=== PATIENT | male | born 1965 | race Caucasian/White ===

== ENCOUNTER 2017-06-21 06:13 | Emergency (ER) | payer OTHER ==
[2017-06-21 06:35] LABS: BILIRUBIN,URINE NEGATIVE (NEGATIVE); GLUCOSE, URINE (UA) NEGATIVE (NEGATIVE); KETONES,URINE (UA) NEGATIVE (NEGATIVE); LEUKOCYTE ESTERASE, URINE NEGATIVE (NEGATIVE); NITRITE,URINE NEGATIVE (NEGATIVE); OCCULT BLOOD,URINE TRACE-INTA (NEGATIVE); PROTEIN,URINE NEGATIVE (NEGATIVE); UROBILINOGEN,URINE 0.2 (NORMAL) E.U./dL (NORMAL)
[2017-06-21] MEDS ORDERED: SODIUM CHLORIDE 0.9% 1,000 ML IV ONE (06:39)
[2017-06-21] MEDS ORDERED: KETOROLAC 60 MG/2 ML VIAL IVP STA (06:39)
[2017-06-21 06:47] LABS: CLARITY,URINE CLEAR (CLEAR)
[2017-06-21 06:48] LABS: BASOPHILS # (AUTO) 0.1 10^3/uL (0.0-0.1); BASOPHILS % (AUTO) 0.6 %; EOSINOPHILS # (AUTO) 0.1 10^3/uL (0.0-0.7); EOSINOPHILS % (AUTO) 1.2 %; HGB - HEMOGLOBIN 14.8 g/dL (14.0-18.0); LYMPHOCYTES # (AUTO) 1.8 10^3/uL (1.5-3.5); LYMPHOCYTES % (AUTO) 17.3 %; MEAN CORPUSCULAR HEMOGLOBIN 28.6 pg (27.0-31.0); MEAN CORPUSCULAR HGB CONC 33.9 g/dL (32.0-36.0); MEAN CORPUSCULAR VOLUME 84.4 fL (80.0-94.0); MEAN PLATELET VOLUME 6.6 fL (7.4-11.4); MONOCYTES # (AUTO) 0.4 10^3/uL (0.0-1.0); MONOCYTES % (AUTO) 4.3 %; NEUTROPHILS # (AUTO) 7.8 10^3/uL (1.5-6.6); NEUTROPHILS % (AUTO) 76.6 %; PLT - PLATELET COUNT 250 10^3/uL (130-450); RED BLOOD COUNT 5.17 10^6/uL (4.70-6.10); RED CELL DISTRIBUTION WIDTH 13.4 % (12.0-15.0); WHITE BLOOD COUNT 10.2 x10^3/uL (4.8-10.8)
[2017-06-21 06:59] LABS: ALBUMIN 4.4 g/dL (3.2-5.5); ALBUMIN/GLOBULIN RATIO 1.5 (1.0-2.2); BILIRUBIN,TOTAL 0.7 mg/dL (0.2-1.0); CALCIUM 9.4 mg/dL (8.5-10.3); CREATININE 1.2 mg/dL (0.6-1.2); TOTAL PROTEIN 7.3 g/dL (6.7-8.2)
--- NOTE | 2017-06-21 07:17 | ED Physician Documentation ---
PD HPI ABD PAIN - Stated complaint Stated Complaint: SIDE/BACK PX - Chief complaint Chief Complaint: Abd Pain - History obtained from History obtained from: Patient - History of Present Illness Timing - onset: Last night (had had some similar pain a few days ago and improved after a few hours. Was doing okay without pain, then severe pain onset overnight and continues into this morning.) Timing - duration: Hours Timing - details: Abrupt onset, Still present Quality: Aching, Sharp, Pain. No: Cramping Location: RLQ Radiation: Right flank Improved by: No: Eating, Laying still, Position Worsened by: No: Eating, Moving, Breathing, Position Associated symptoms: Nausea. No: Fever, Vomiting, Diarrhea, Dysuria Similar symptoms before: Diagnosis (kidney stone many years ago. No recent problems.) Recently seen: Not recently seen Review of Systems Constitutional: denies: Fever, Chills Nose: denies: Rhinorrhea / runny nose, Congestion Throat: denies: Sore throat Cardiac: denies: Chest pain / pressure, Palpitations Respiratory: denies: Cough GI: reports: Abdominal Pain, Nausea. denies: Vomiting, Diarrhea : denies: Dysuria, Frequency Skin: denies: Rash, Lesions PD PAST MEDICAL HISTORY - Past Medical History Past Medical History: Yes Cardiovascular: Hypertension Respiratory: None Neuro: None Endocrine/Autoimmune: None GI: None : Kidney stones HEENT: None Psych: None Musculoskeletal: None Derm: None - Past Surgical History Past Surgical History: Yes - Present Medications Home Medications: Ambulatory Orders Medication Instructions Recorded Confirmed HYDROcod/ACETAM 5/325 [Oneco 5/325] 1 tab PO Q6H PRN #15 tablet 06/21/17 Losartan [Cozaar] 50 mg PO DAILY 06/21/17 06/21/17 Multivitamin [Multiple Vitamins] 1 tab PO DAILY 06/21/17 06/21/17 Ondansetron Odt [Zofran] 4 mg TL Q6H PRN #15 tablet 06/21/17 - Allergies Allergies/Adverse Reactions: Allergies Allergy/AdvReac Type Severity Reaction Status Date / Time acetaminophen [From Percocet] Allergy Unknown Verified 06/21/17 06:43 oxycodone [From Percocet] Allergy Unknown Verified 06/21/17 06:43 - Social History Does the pt smoke?: No Smoking Status: Never smoker Does the pt drink ETOH?: Yes Does the pt have substance abuse?: No - Immunizations Immunizations are current?: Yes - POLST Patient has POLST: No PD ED PE NORMAL - Vitals Vital signs reviewed: Yes - General General: Alert and oriented X 3, Well developed/nourished, Other (appears in pain) - HEENT HEENT: Pharynx benign - Neck Neck: Supple, no meningeal sign, No adenopathy - Cardiac Cardiac: RRR, No murmur - Respiratory Respiratory: Clear bilaterally - Abdomen Abdomen: Normal bowel sounds, Soft, Non distended, No organomegaly, Other (mild tender right lower without guarding nor percussion tender. Right CVA area is tender to percussion. ) - Male Male : Other (no inguinal nodes nor hernias. Scrotum not examined. ) - Derm Derm: Normal color, Warm and dry - Extremities Extremities: No tenderness to palpate, Normal ROM s pain, No edema, No calf tenderness / cord - Neuro Neuro: Alert and oriented X 3, No motor deficit, Normal speech Results - Vitals Vitals: Vital Signs - 24 hr 06/21/17 06/21/17 06:22 08:28 Temperature 37.0 C Heart Rate 88 73 Respiratory 18 16 Rate Blood Pressure 181/95 H 132/80 H O2 Saturation 95 98 Oxygen O2 Source Room air - Labs Labs: Laboratory Tests 06/21/17 06/21/17 06/21/17 06:23 06:38 06:38 WBC 10.2 RBC 5.17 Hgb 14.8 Hct 43.6 MCV 84.4 MCH 28.6 MCHC 33.9 RDW 13.4 Plt Count 250 MPV 6.6 L Neut # 7.8 H Lymph # 1.8 Richardson # 0.4 Eos # 0.1 Baso # 0.1 Absolute Nucleated RBC 0.00 Nucleated RBC % 0.0 Sodium 140 Potassium 4.1 Chloride 104 Carbon Dioxide 26 Anion Gap 10.0 BUN 21 H Creatinine 1.2 Estimated GFR (MDRD) 64 L Glucose 156 H Calcium 9.4 Total Bilirubin 0.7 AST 37 ALT 52 Alkaline Phosphatase 43 Total Protein 7.3 Albumin 4.4 Globulin 2.9 Albumin/Globulin Ratio 1.5 Lipase 14 L Urine Color YELLOW Urine Clarity CLEAR Urine pH 6.0 Ur Specific [place] 1.025 Urine Protein NEGATIVE Urine Glucose (UA) NEGATIVE Urine Ketones NEGATIVE Urine Occult Blood TRACE-INTA Urine Nitrite NEGATIVE Urine Bilirubin NEGATIVE Urine Urobilinogen 0.2 (NORMAL) Ur Leukocyte Esterase NEGATIVE Ur Microscopic Review NOT INDICATED Urine Culture Comments NOT INDICATED - Rads (name of study) KUB CT Radiology: Prelim report reviewed (distal right ureteral stone 2-3 mm with mild obstruction. ) PD MEDICAL DECISION MAKING - ED course Complexity details: reviewed results (small 2 mm stone distal right ureter. ), re-evaluated patient (much improved with IV meds. Feels good to go home.), considered differential, d/w patient Departure - Departure Disposition: Home, Self Care Clinical Impression: Renal colic, Ureterolithiasis Abdominal pain Qualifiers: Abdominal location: right lower quadrant Qualified Code(s): R10.31 - Right lower quadrant pain Condition: Stable Record reviewed to determine appropriate education?: Yes Instructions: ED Stone Renal W Colic Follow-Up: Riaz Martinez MD [Primary Care Provider] - Prescriptions: HYDROcod/ACETAM 5/325 [Oneco 5/325] 1 tab PO Q6H PRN #15 tablet PRN Reason: Pain Ondansetron Odt [Zofran] 4 mg TL Q6H PRN #15 tablet PRN Reason: Nausea / Vomiting Comments: Drink lots of fluids. Ibuprofen or naproxen 2-3 times a day for the next few days. Add ondansetron if needed for nausea and hydrocodone if needed for pain. Follow-up with your primary if this has not improved over the next few days. Discharge Date/Time: 06/21/17 09:05
[2017-06-21] MEDS ORDERED: LIDOCAINE-MPF 2% 7 ML in SODIUM CHLORIDE 0.9% 50 ML IV STA (07:25)
[2017-06-21] MEDS ORDERED: HYDROmorphone 1 MG/ML SYRINGE IVP STA (07:25)
[2017-06-21] MEDS ORDERED: ONDANSETRON 4 MG/2 ML VIAL IVP STA (07:25)
--- NOTE | 2017-06-21 08:18 | CT Report ---
EXAM: CT ABDOMEN AND PELVIS (CT KUB) EXAM DATE: 06/21/2017 07:55 AM. CLINICAL HISTORY: Right flank and abd pain abrupt. COMPARISONS: None. TECHNIQUE: Routine axial helical CT imaging was performed through the abdomen and pelvis without IV c ontrast. Reconstructions: Coronal and sagittal. In accordance with CT protocol optimization, one or more of the following dose reduction techniques w ere utilized for this exam: automated exposure control, adjustment of mA and/or KV based on patient s ize, or use of iterative reconstructive technique. FINDINGS: Lung Bases: Unremarkable. Right Kidney/Ureter: No stones, hydronephrosis, or hydroureter. No perinephric fat stranding. There is a 2 mm stone of the distal right ureter. There is mild periureteral fat stranding. Left Kidney/Ureter: No stones, hydronephrosis, or hydroureter. No perinephric fat stranding. Other Solid Organs: There is a low attenuating focus in the right lobe of the liver 2.3 x 1.3 cm. Add itional similar-appearing focus in the right lobe more inferiorly 1.3 x 1.1 centimeters. These are no nspecific. Gallbladder/Bile Ducts: Unremarkable. Peritoneal Cavity: No free fluid, free air or atul adenopathy. Bowel is grossly unremarkable. Pelvic Organs: No bladder stones or wall thickening. Noncontrast images of the visualized pelvic orga ns are unremarkable. Vasculature: Unremarkable. No bone lesions. IMPRESSION: 2 mm distal right ureteral stone causes mild obstruction. There are nonspecific low attenuating lesions in the liver, which may be better evaluated with liver CT. [facility] Referring Provider Line: [phone] SITE ID: [id number]
[2017-06-21 08:28] VITALS: BP 132/80
== END 2017-06-21 09:05 | disposition home or self-care (01) ==
LOC: ED 06:13
DX: N20.1 Calculus of ureter (principal); R10.31 Right lower quadrant pain; I10 Essential (primary) hypertension
CPT/HCPCS: 36415; 74176; 80053; 81001; 81003; 83690; 85025; 87086; 96361; 96374; 99283; 99284

== ENCOUNTER 2018-03-05 11:47 | Emergency (ER) | payer OTHER ==
--- NOTE | 2018-03-05 12:28 | XRAY Report ---
Reason: GLF, left shoulder/upper arm pain Procedure Date: 03/05/2018 Accession Number: [id number] / [id number] Procedure: XR - Shoulder 3 View LT CPT Code: FULL RESULT: EXAM: LEFT SHOULDER RADIOGRAPHY EXAM DATE: 03/05/2018 12:12 PM. CLINICAL HISTORY: GLF, left shoulder/upper arm pain. COMPARISON: None. TECHNIQUE: 3 views. FINDINGS: The humeral head is dislocated inferiorly and anteriorly. There is a Hill-Sachs lesion. In addition, there is a greater tuberosity fracture. The AC joint appears intact. IMPRESSION: 1. Glenohumeral dislocation 2. Hill-Sachs lesion and greater tuberosity fracture. [facility]
--- NOTE | 2018-03-05 12:47 | ED Physician Documentation ---
PD HPI UPPER EXT INJURY - Stated complaint Stated Complaint: LEFT SHOULDER INJ - Chief complaint Chief Complaint: Ext Problem - History obtained from History obtained from: Patient - History of Present Illness Location: Left, Shoulder Type of injury: Fall (from about 9 feet elevation, landed onto left shoulder. Did not hit head. Denies LOC but felt perhaps dazed few minutes. Does not feel he impacted his head signficantly.) Timing - onset: Today Timing - details: Abrupt onset, Still present Worsened by: Moving (any slight movement) Associated symptoms: No: Weakness, Numbness Contributing factors: No: Anticoagulated, Prior ortho surgery Similar symptoms before: Has not had sx before Recently seen: Not recently seen Review of Systems Constitutional: denies: Fever Nose: denies: Rhinorrhea / runny nose, Congestion Throat: denies: Sore throat Cardiac: denies: Chest pain / pressure, Palpitations Respiratory: denies: Dyspnea, Cough GI: denies: Abdominal Pain, Nausea, Vomiting Musculoskeletal: denies: Neck pain, Back pain Neurologic: denies: Focal weakness, Numbness, Confused, Altered mental status, Headache, LOC PD PAST MEDICAL HISTORY - Past Medical History Past Medical History: No Cardiovascular: Hypertension Respiratory: None Neuro: None Endocrine/Autoimmune: None GI: None : Kidney stones HEENT: None Psych: None Musculoskeletal: None Derm: None - Past Surgical History Past Surgical History: Yes - Present Medications Home Medications: Ambulatory Orders Medication Instructions Recorded Confirmed HYDROcod/ACETAM 5/325 [[place] 5/325] 1 tab PO Q6H PRN #15 tablet 06/21/17 Losartan [Cozaar] 50 mg PO DAILY 06/21/17 06/21/17 Multivitamin [Multiple Vitamins] 1 tab PO DAILY 06/21/17 06/21/17 Ondansetron Odt [Zofran] 4 mg TL Q6H PRN #15 tablet 06/21/17 Hydrocodone/Acetaminophen [[place] 1 each PO Q6H PRN #20 tablet 03/05/18 5-325 Tablet] Naproxen 375 mg PO BID #20 tablet 03/05/18 - Allergies Allergies/Adverse Reactions: Allergies Allergy/AdvReac Type Severity Reaction Status Date / Time oxycodone [From Percocet] Allergy Unknown Verified 03/05/18 12:01 - Social History Does the pt smoke?: No Smoking Status: Never smoker Does the pt drink ETOH?: Yes Does the pt have substance abuse?: No - Family History Family history: reports: Non contributory - Immunizations Immunizations are current?: Yes - POLST Patient has POLST: No PD ED PE NORMAL - Vitals Vital signs reviewed: Yes - General General: Alert and oriented X 3, Well developed/nourished, Other (appears in pain and this increased with any slight movement of the shoulder or trunk. ) - HEENT HEENT: Atraumatic, PERRL, EOMI, Pharynx benign, Dentition benign - Neck Neck: Supple, no meningeal sign, No bony TTP, No adenopathy - Cardiac Cardiac: RRR, No murmur - Respiratory Respiratory: Clear bilaterally, Other (no chestwall tenderness) - Abdomen Abdomen: Soft, Non tender - Derm Derm: Normal color, Warm and dry - Extremities Extremities: No tenderness to palpate, Normal ROM s pain (except for left shoulder which has obvious anterior dislocation clinically. ) - Neuro Neuro: Alert and oriented X 3, No motor deficit, No sensory deficit, Normal speech Results - Vitals Vitals: Oxygen O2 Source Room air - Rads (name of study) left shoulder Radiology: Prelim report reviewed, EMP read contemporaneously (anterior dislocation and greater tuberosity fracture, minimally displaced. ) shoulder post reduction Radiology: Prelim report reviewed, EMP read contemporaneously (reduced and improved appearance of the fracture. ) Procedures - Reduction Body part reduced: Left, Shoulder Fracture or dislocation: Fracture dislocation Anesthesia: Conscious sedation, Dilaudid Shoulder reduction technique: [place] / ext rotation Reduction aftercare: NV intact, Xray confirms reduction, Alignment improved, Sling, Patient tolerated well PD MEDICAL DECISION MAKING - ED course Complexity details: reviewed results, re-evaluated patient (much improved after shoulder relocated. ), considered differential, d/w patient Departure - Departure Disposition: 01 Home, Self Care Clinical Impression: Accidental fall Qualifiers: Encounter type: initial encounter Qualified Code(s): W19.XXXA - Unspecified fall, initial encounter Anterior shoulder dislocation Qualifiers: Encounter type: initial encounter Laterality: left Qualified Code(s): S43.015A - Anterior dislocation of left humerus, initial encounter Fracture of greater tuberosity of humerus Qualifiers: Encounter type: initial encounter Fracture type: closed Fracture alignment: nondisplaced Laterality: left Qualified Code(s): S42.255A - Nondisplaced fracture of greater tuberosity of left humerus, initial encounter for closed fracture Condition: Stable Record reviewed to determine appropriate education?: Yes Instructions: ED Dislocation Shoulder Redu Follow-Up: [facility] [Provider Group] Prescriptions: Hydrocodone/Acetaminophen [[place] 5-325 Tablet] 1 each PO Q6H PRN #20 tablet PRN Reason: Pain Naproxen 375 mg PO BID #20 tablet Comments: Use a sling for the shoulder with limited range of motion for the next month. Follow-up with orthopedics in about a week, call for an appointment. Protected use of the left arm and shoulder. Particularly no overhead reaching push pull nor lifting with the arm. Naproxen or ibuprofen twice daily for the next 7-10 days for inflammation and pain. Add Tylenol or hydrocodone if needed for pains. Forms: Activity restrictions Discharge Date/Time: 03/05/18 14:37
[2018-03-05] MEDS: SODIUM CHLORIDE 0.9% 1,000 ML IV ONE (13:09)
[2018-03-05] MEDS: MORPHINE 10 MG/ML VIAL IVP STA (13:10)
[2018-03-05] MEDS: KETOROLAC 60 MG/2 ML VIAL IVP STA (13:12)
[2018-03-05] MEDS: PROPOFOL 200 MG/20 ML VIAL IVP STA (13:45)
[2018-03-05 14:03] VITALS: BP 142/90
--- NOTE | 2018-03-05 14:15 | XRAY Report ---
Reason: post reduction Procedure Date: 03/05/2018 Accession Number: [id number] / [id number] Procedure: XR - Shoulder 2 View LT CPT Code: FULL RESULT: EXAM: LEFT SHOULDER RADIOGRAPHY EXAM DATE: 03/05/2018 01:46 PM. CLINICAL HISTORY: Post reduction. COMPARISON: Left shoulder earlier in the day. TECHNIQUE: 2 views. FINDINGS: Bones: There is a Hill-Sachs lesion. Greater tuberosity fracture is seen to advantage on the previous shoulder radiographs. Joints: There are mild degenerative changes of the acromioclavicular joint, which appears otherwise intact. Soft tissues: The visualized hemithorax is unremarkable. No soft tissue swelling. IMPRESSION: Hill-Sachs lesion. Reduced glenohumeral joint. Likely greater tuberosity fracture is seen to advantage on the shoulder radiographs from earlier in the day. CT confirmation is available. [facility]
== END 2018-03-05 14:37 | disposition home or self-care (01) ==
LOC: ED 11:47
DX: S43.015A Anterior dislocation of left humerus, initial encounter (principal); S42.255A Nondisplaced fracture of greater tuberosity of left humerus, initial encounter for closed fracture; W17.89XA Other fall from one level to another, initial encounter; Y99.0 Civilian activity done for income or pay; I10 Essential (primary) hypertension
CPT/HCPCS: 23650; 99283

== ENCOUNTER 2021-04-18 15:53 | Outpatient (CLI) | payer BC, OTHER ==
--- NOTE | 2021-04-18 16:17 | XRAY Report ---
PROCEDURE: Foot 3 View RT INDICATIONS: PAIN, EDEMA 2ND MT NECK TECHNIQUE: 3 views of the foot were acquired. COMPARISON: None FINDINGS: These images demonstrate severe osteoarthritis of the first MTP characterized by complete loss of haydee nt space with large marginal osteophytes, subchondral sclerosis, and subchondral cystic change. There is also flattening of the articular surfaces of the proximal first phalanx and distal first metatars al. Adjacent soft tissue swelling with mild hallux valgus deformity and medial. Of note, there is a prominent osteophyte projecting from the lateral aspect of the proximal first pha lanx near the articular surface, extending second metatarsal toward the second metatarsal head and se parated from the second metatarsal head by a distance of only 2 mm. Similar prominent bulky osteophyt es are seen projecting from the medial aspect of the distal first metatarsal also. There is mild osteophytic change of the second metatarsophalangeal joint. Hammertoe deformities of the second, third, and fourth digits. IMPRESSION: Severe first MTP osteoarthritis. Bulky osteophytes projecting laterally from the lateral aspect of the first metatarsal and phalanx ne ar the MTP articular surface which closely approximate the second metatarsal. Mild second MTP osteoarthritis. Reviewed by: Francisco Osborn MD on 04/18/2021 4:16 PM PST Approved by: Francisco Osborn MD on 04/18/2021 4:16 PM PST Station ID: [id number]
== END 2021-04-18 15:54 | disposition home or self-care (01) ==
LOC: DI 15:53
PROVIDERS: ATTEND Podiatrist
DX: M19.071 Primary osteoarthritis, right ankle and foot (principal)

== ENCOUNTER 2022-02-15 08:00 | Outpatient (CLI) | payer BC, OTHER ==
[2022-02-15 16:40] LABS: BASOPHILS % (AUTO) 0.6 %; EOSINOPHILS # (AUTO) 0.2 10^3/uL (0.0-0.7); EOSINOPHILS % (AUTO) 2.4 %; HCT - HEMATOCRIT 44.5 % (42.0-52.0); HGB - HEMOGLOBIN 15.3 g/dL (14.0-18.0); LYMPHOCYTES # (AUTO) 2.2 10^3/uL (1.5-3.5); LYMPHOCYTES % (AUTO) 30.5 %; MEAN CORPUSCULAR HEMOGLOBIN 28.5 pg (27.0-31.0); MEAN CORPUSCULAR HGB CONC 34.4 g/dL (32.0-36.0); MEAN CORPUSCULAR VOLUME 82.9 fL (80.0-94.0); MEAN PLATELET VOLUME 9.3 fL (7.4-11.4); MONOCYTES # (AUTO) 0.5 10^3/uL (0.0-1.0); MONOCYTES % (AUTO) 6.9 %; NEUTROPHILS # (AUTO) 4.2 10^3/uL (1.5-6.6); NEUTROPHILS % (AUTO) 59.5 %; PLT - PLATELET COUNT 234 10^3/uL (130-450); RED BLOOD COUNT 5.37 10^6/uL (4.70-6.10); RED CELL DISTRIBUTION WIDTH 12.7 % (12.0-15.0); WHITE BLOOD COUNT 7.1 x10^3/uL (4.8-10.8)
[2022-02-15 17:00] LABS: ALBUMIN 4.5 g/dL (3.2-5.5); ALBUMIN/GLOBULIN RATIO 1.6 (1.0-2.2); ALKALINE PHOSPHATASE 68 IU/L (42-121); ALT ALANINE AMINOTRANSFERASE 176 IU/L (10-60); AST ASPARTATE AMINOTRANSFERASE 118 IU/L (10-42); BILIRUBIN,TOTAL 1.1 mg/dL (0.2-1.0); BUN - BLOOD UREA NITROGEN 13 mg/dL (6-20); CALCIUM 9.5 mg/dL (8.5-10.3); CARBON DIOXIDE - CO2 25 mmol/L (21-32); CHLORIDE 97 mmol/L (101-111); CHOL/HDL RATIO 5.3 (<5.0); CHOLESTEROL 142 mg/dL; CREATININE 0.9 mg/dL (0.6-1.2); GFR - MDRD 87 (>89); GLUCOSE 264 mg/dL (70-100); HDL CHOLESTEROL 27 mg/dL; LDL CHOLESTEROL,CALCULATED 75 mg/dL; LDL/HDL RATIO 2.8 (<3.6); POTASSIUM 4.5 mmol/L (3.5-5.0); SODIUM 134 mmol/L (135-145); TOTAL PROTEIN 7.3 g/dL (6.7-8.2); TRIGLYCERIDES 198 mg/dL; VLDL CHOLESTEROL 40 mg/dL
== END 2022-02-15 23:59 | disposition home or self-care (01) ==
LOC: LAB.R 08:00
PROVIDERS: ATTEND Internal Medicine
DX: Z00.00 Encounter for general adult medical examination without abnormal findings (principal); I10 Essential (primary) hypertension; Z86.010 Personal history of colon polyps; Z79.899 Other long term (current) drug therapy
CPT/HCPCS: 80053; 80061; 83721; 84443; 85025

== ENCOUNTER 2022-04-25 08:00 | Outpatient (CLI) | payer BC, OTHER ==
[2022-04-25 16:02] LABS: ALBUMIN 4.5 g/dL (3.2-5.5); ALBUMIN/GLOBULIN RATIO 1.5 (1.0-2.2); BILIRUBIN,TOTAL 0.9 mg/dL (0.2-1.0); TOTAL PROTEIN 7.5 g/dL (6.7-8.2)
[2022-04-25 20:41] LABS: ESTIMATED AVERAGE GLUCOSE 303 mg/dL (70-100); HEMOGLOBIN A1c% 12.2 % (4.27-6.07)
== END 2022-04-25 23:59 | disposition home or self-care (01) ==
LOC: LAB.R 08:00
PROVIDERS: ATTEND Internal Medicine
DX: R74.8 Abnormal levels of other serum enzymes (principal); R73.9 Hyperglycemia, unspecified; R42 Dizziness and giddiness; M54.40 Lumbago with sciatica, unspecified side
CPT/HCPCS: 80053; 83036

== ENCOUNTER 2022-05-18 06:49 | Outpatient (CLI) | payer BC, OTHER ==
--- NOTE | 2022-05-18 13:07 | Ultrasound Report ---
PROCEDURE: Abdomen Limited INDICATIONS: Elevated liver enzymes. TECHNIQUE: Real-time focused scanning was performed of the abdomen, with image documentation. COMPARISON: 06/21/2017 FINDINGS: Increased hepatic parenchymal echogenicity. Coarsened hepatic echotexture. No focal hepati c mass identified. Approximately 2.4 cm septated cyst in the posterior right hepatic lobe. Gallbladde r normal. No intrahepatic or extra hepatic biliary ductal dilatation. Poorly visualized pancreas, paola ssly unremarkable. Unchanged 2.2 cm simple appearing cyst in the right interpolar kidney. Kidneys oth erwise normal. IMPRESSION: Hepatomegaly with hepatic steatosis and probable steatohepatitis. Reviewed by: Francisco Osborn MD on 05/18/2022 1:06 PM PST Approved by: Francisco Osborn MD on 05/18/2022 1:06 PM PST Station ID: [id number]
== END 2022-05-18 06:50 | disposition home or self-care (01) ==
LOC: DI 06:49
PROVIDERS: ATTEND Internal Medicine
DX: K76.0 Fatty (change of) liver, not elsewhere classified (principal); R16.0 Hepatomegaly, not elsewhere classified